=== PATIENT | female | born 1990 | race Caucasian/White ===

== ENCOUNTER 2017-06-12 13:20 | Emergency (ER) | payer BC, OTHER ==
[2017-06-12 13:58] VITALS: TEMP 98.7; O2SAT 99
--- NOTE | 2017-06-12 14:26 | C.PDOC ---
History Of Present Illness 26 y/o F c no PMHx p/w lower abdominal cramping and hematuria. Patient states had period starting 4 days ago and would typically be over by now but continues to have lower abdominal cramping and sees blood when wiping and in urine but no blood on pad. Denies fever, chills, back pain, dysuria, increased urinary frequency, vomiting, or any history of STD. Time Seen by Provider: 06/12/17 14:03 Chief Complaint (Nursing): Abdominal Pain Past Medical History Vital Signs: Last Vital Signs Temp 98.7 F 06/12/17 13:55 Pulse 68 06/12/17 13:55 Resp 14 06/12/17 13:55 BP 133/86 06/12/17 13:55 Pulse Ox 99 06/12/17 14:29 Family History: States: No Known Family Hx - Social History Hx Alcohol Use: No Hx Substance Use: No - Immunization History Hx Influenza Vaccination: No Hx Pneumococcal Vaccination: No Review Of Systems Except As Marked, All Systems Reviewed And Found Negative. Constitutional: Negative for: Fever Respiratory: Negative for: Shortness of Breath Physical Exam - Physical Exam Additional Physical Exam Comments: Gen: NAD Head: NC Eyes: No scleral icterus ENT: MMM Neck: Supple CV: Regular rate Lungs: CTA b/l Abd: Soft, NT BacK: No CVA tenderness Skin: No rash Neuro: Alert, no focal deficit ED Course And Treatment O2 Sat by Pulse Oximetry: 99 Medical Decision Making Medical Decision Making: Pelvic exam with office agent shows residual blood in vaginal canal, no active bleeding seen. FINDINGS: UTERUS: Measures 3.8 x 4.6 x 8.6 cm. Normal in size and appearance. No fibroid or other mass lesion seen. ENDOMETRIUM: Measures 6.1 mm in diameter. No ultrasound findings to suggest gestational sac, fluid, debris, mass or polyp or other pathologic process within the endometrium. CERVIX: No cervical abnormality identified. RIGHT OVARY: Measures 2.2 x 4.9 x 6.4 cm. No solid mass. Normal flow. Complex cyst with internal debris and septa. This measures 3.2 x 4 x 4.5 cm. LEFT OVARY: Measures 2.5 x 3.1 x 3.4 cm. No solid mass. Normal flow. Multiple subcentimeter follicles. FREE FLUID: No significant free fluid noted. OTHER FINDINGS: None. IMPRESSION: No evidence of adnexal torsion. Complex septated cyst/ mass originating from the right ovary. Disposition - Disposition Disposition: HOME/ ROUTINE Disposition Time: 18:54 Condition: STABLE Instructions: Ovarian Cysts Forms: [facility] (Urdu) - Clinical Impression Clinical Impression: Ovarian cyst
[2017-06-12 14:56] LABS: HCG,QUALITATIVE URINE NEGATIVE (NEGATIVE)
[2017-06-12 15:03] LABS: SQUAMOUS EPITHIAL 2 /hpf (0-5); URINE BACTERIA RARE (<OCC); URINE BILIRUBIN NEGATIVE (NEGATIVE); URINE BLOOD 3+ (NEGATIVE); URINE CLARITY Clear (Clear); URINE COLOR Yellow (YELLOW); URINE GLUCOSE (UA) NORMAL (Normal); URINE LEUKOCYTE ESTERASE NEG Leu/uL (Negative); URINE NITRATE NEGATIVE (NEGATIVE); URINE PROTEIN 1+ mg/dL (NEGATIVE); URINE UROBILINOGEN NORMAL mg/dL (0.2-1.0)
--- NOTE | 2017-06-12 18:50 | US ---
HISTORY: Lower abdominal pain, vaginal bleeding, r/o torsion Menstrual status: LMP 06/09/2017. COMPARISON: None available. TECHNIQUE: Transabdominal, transvaginal. Real -time technique with 2D, duplex and color Doppler. FINDINGS: UTERUS: Measures 3.8 x 4.6 x 8.6 cm. Normal in size and appearance. No fibroid or other mass lesion seen. ENDOMETRIUM: Measures 6.1 mm in diameter. No ultrasound findings to suggest gestational sac, fluid, debris, mass or polyp or other pathologic process within the endometrium. CERVIX: No cervical abnormality identified. RIGHT OVARY: Measures 2.2 x 4.9 x 6.4 cm. No solid mass. Normal flow. Complex cyst with internal debris and septa. This measures 3.2 x 4 x 4.5 cm. LEFT OVARY: Measures 2.5 x 3.1 x 3.4 cm. No solid mass. Normal flow. Multiple subcentimeter follicles. FREE FLUID: No significant free fluid noted. OTHER FINDINGS: None. IMPRESSION: No evidence of adnexal torsion. Complex septated cyst/ mass originating from the right ovary.
[2017-06-12 19:05] VITALS: BP 114/76; PULSE 64; RESP 20
== END 2017-06-12 19:30 | disposition home or self-care (01) ==
LOC: C.ER 13:20
DX: N83.201 Unspecified ovarian cyst, right side (principal)

== ENCOUNTER 2018-06-17 07:27 | Outpatient (CLI) | payer BC | END 2018-06-17 07:28 | disposition home or self-care (01) | LOC: C.RADIC 07:27 ==